=== PATIENT | male | born 1990 | race Caucasian/White ===

== ENCOUNTER 2019-04-12 20:01 | Emergency (ER) | payer OTHER ==
[~2019-04-12] VITALS: Ht 195.6 cm; Wt 149.6 kg
--- NOTE | ~2019-04-12 | PROC ---
[address] [address] PROCEDURE REPORT Name: MISTY CHAN Room: [facility] MARGUERITE Gayle#: [id number] Admission: 04/12/19 Attend Phys: Discharge: 04/12/19 Date of : [birth year] Report #: [id number] THIS REPORT FOR: //name// For GI report, please see the Provation report in Perceptive 7 content. By: 0642Medical Records Staff PAULINA /ANTONY
[~2019-04-12 20:01] MED LIST: CITRATE OF MAG296 ML PO; NITROGLYCERIN0.4 MG
[2019-04-12 20:50] LABS: CALCIUM 9.5 mg/dL (8.5-10.1); POTASSIUM 3.9 mmol/L (3.5-5.1)
[2019-04-12 22:22] VITALS: BP 106/49
--- NOTE | 2019-04-13 16:55 | EKG ---
[place] [address] ELECTROCARDIOGRAM REPORT Name: MISTY CHAN Room: [facility]#: [id number] Admission: 04/12/19 Attend Phys: Discharge: 04/12/19 Date of : 89 Report #: [id number] THIS REPORT FOR: //name// [facility] ED Test Date: 2019-04-12 Test Time: 20:19:55 Pat Name: MISTY CHAN Department: Room: Gender: M Rn Integrated: DESI : 1990 Requested By: Jimbo Musa Order Number: [id number] MD: Dwight Barrientos Measurements Intervals [place] Rate: 101 P: 32 NH: 170 QRS: 83 QRSD: 113 T: -43 QT: 354 QTc: 459 Interpretive Statements Sinus tachycardia Borderline intraventricular conduction delay Abnormal T, consider ischemia, anterior leads Baseline wander in lead(s) V2 No previous ECG available for comparison Electronically Signed On 04-13-2019 16:54:56 CDT by Dwight Barrientos [email or web address] <ELECTRONICALLY SIGNED> By: Dwight Barrientos MD, [facility] 04/13/19 1654 18 18 Dwight Barrientos MD, FACC /EPI
--- NOTE | 2019-04-14 17:06 | PATH ---
[facility] [address] [place] [address] PATHOLOGY RPT PROCEDURE Name: ROCIOMISTY Mary Carmen Room: [facility] MARGUERITE Gayle#: [id number] Admission: 04/12/19 Date of : 89 Discharge: 04/12/19 Report #: [id number] Path Case #: [id number] [facility] Accession Number: [id number] . 01 Material submitted: . esophagus - ESOPHAGEAL BIOPSY . 01 Clinical history: . Rule out eosinophilic esophagitis . 02 Diagnosis: Esophageal biopsy: - Severe chronic esophagitis compatible with reflux, with stromal fibrosis. See comment. (MERLIN:mirlande; 04/14/2019) MBR 04/14/2019 1608 Local . 02 Comment: The biopsy reveals benign esophageal mucosa noted to have prominent basilar cell hyperplasia. However, eosinophils average less than 10 per high-power field and do not show surface aggregation and therefore the tissues are nondiagnostic for eosinophilic esophagitis. 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 02 Electronically signed: . Dickson Roy MD, Pathologist NPI- [id number] . 01 Gross description: . Received in formalin labeled "Misty Chan, esophageal biopsy," is a single segment of jain soft tissue measuring 0.3 cm in maximum dimension. The specimen is entirely submitted in cassette A1. (TSD; 04/13/2019) TOB/TOB 04/13/2019 1838 Local . 02 Pathologist provided ICD-10: K21.0 . 02 CPT . 256548 Specimen Comment: A courtesy copy of this report has been sent to Specimen Comment: [phone], . Specimen Comment: Report sent to / DR NORTON Performed at: [address] [id number] MD Armando Meraz MD Phone: [phone] Performed at: [address] [address] PATHOLOGY RPT PROCEDURE Name: MISTY CHAN Room: [facility]#: [id number] Admission: 04/12/19 Date of : 89 Discharge: 04/12/19 Report #: [id number] Path Case #: [id number] [address] [id number] MD Dickson Roy MD Phone: [phone]
== END 2019-04-12 22:30 | disposition still patient (30) ==
LOC: M.ERS 20:01
PROVIDERS: Emergency Medicine Emergency Medical Services
DX: T18.128A Food in esophagus causing other injury, initial encounter (principal); X58.XXXA Exposure to other specified factors, initial encounter; Y93.89 Activity, other specified; Y92.89 Other specified places as the place of occurrence of the external cause; Y99.8 Other external cause status